=== PATIENT | female | born 1935 | race Caucasian/White ===

== ENCOUNTER 2023-08-31 10:44 | Emergency (ER) | payer MEDICARE, BC, SELFPAY ==
[2023-08-31 10:47] VITALS: BP 166/105
--- NOTE | 2023-08-31 10:49 | ED.GENMED ---
History of Present Illness
General
Chief Complaint: Heart Rate Problem
Source: records and ambulance crew
Time Seen by Provider: 08/31/23 10:45
History of Present Illness
History of Present Illness:
88-year-old female with past medical history of dementia and atrial fibrillation presenting to the emergency department from [facility] after staff found her to be in atrial fibrillation with rapid ventricular rate this morning
upon awakening. Patient herself has no concerns at this time. She is unable to provide any history secondary to her already known dementia. She is denying any chest pain, shortness of breath or any other concerns at present time. Unclear if
patient is on any current anticoagulants.
Past History
Past History
ED Past Medical History: Arrthythmia and Other (Dementia)
Social History
Tobacco: Non-smoker
Alcohol: None
Drug: None
Living: [facility]
Review of Systems
Review of Systems
All Other Systems: ROS reviewed and negative except as documented in HPI and ROS
Phy Exam
Physical Exam
Physical Exam:
GENERAL: Alert , in no apparent distress
EYE: Clear conjunctiva
NECK: Supple
ENT: o/p clr, mmm.
CARDIAC: Irregularly irregular, tachycardic
LUNGS: Clear breath sounds bilaterally, no acute respiratory distress,
ABDOMEN: Soft, without focal tenderness, no r/g, no cvat
NEUROLOGICAL: Alert and oriented to person but not place or time
SKIN: Warm and dry, skin intact.
MUSCULOSKELETAL: No edema, well perfused.
PSYCH: Normal and appropriate interaction.
Scores
Heart Failure Risk
Heart Failure Risk Score: Not Applicable
Heart Score for Chest Pain Patients
STEMI patient?: Not applicable
Withdrawal Assessment of Alcohol
Withdrawal Assessment Completed?: Not applicable
Course
Orders/Labs/Results
Orders:
Orders
08/31/23 10:49
Electrocardiogram (*1) Urgent
Reason for Study: Atrial Fibrillation
EKG- Treatment ONCE
08/31/23 10:52
Electrocardiogram (*1) Urgent
Reason for Study: Atrial Fibrillation
08/31/23 10:55
Basic Metabolic Panel Urgent
Complete Blood Count/With Diff Urgent
TSH Urgent
08/31/23 10:57
PTT Urgent
Prothrombin Time Urgent
08/31/23 11:24
EKG [Electrocardiogram (*1)] Urgent
Reason for Study: Other
Other Reason for Exam: rhythm change
08/31/23 11:25
EKG- Treatment ONCE
08/31/23 11:29
Diltiazem Sustained Release [Cardizem Sr] 60 mg PO NOW STA
Abnormal Lab Results
08/31/23 08/31/23
10:55 10:57
RBC 3.71 L 10^6/uL
(4.20-5.40)
MCV 101.3 H fL
(81.0-99.0)
MCH 32.3 H pg
(27.0-31.0)
MCHC 31.9 L g/dL
(33.0-37.0)
RDW 14.8 H %
(11.5-14.5)
Absolute Monos (auto) 0.7 H 10^3/uL
(0.1-0.6)
PT 16.6 H Sec
(11.4-14.6)
Sodium 134 L mmol/L
(135-145)
Creatinine 0.5 L mg/dL
(0.6-1.0)
Glucose 122 H mg/dl
(70-99)
08/31/23 10:55
08/31/23 10:55
Vital Signs
Initial and Last Documented VS:
Initial Vital Signs
Temp Pulse Resp BP Pulse Ox
98.6 F 140 18 166/105 96
08/31/23 10:47 08/31/23 10:47 08/31/23 10:47 08/31/23 10:47 08/31/23 10:47
Last Documented Vital Signs
Temp Pulse Resp BP Pulse Ox
98.6 F 91 9 128/75 97
08/31/23 10:47 08/31/23 13:00 08/31/23 13:00 08/31/23 13:00 08/31/23 13:00
MDM/Problems Addressed
Differential Diagnosis Includes:
Cardiac dysrhythmia, valvular dysfunction, electrolyte disturbance, less concern for infectious etiology
MDM/Problems Addressed:
88-year-old female presenting emergency department for evaluation of atrial fibrillation with rapid ventricular rate. She has a known history of A-fib but is not clear as to if patient is anticoagulated. Will attempt to contact patient's nursing
home to find out what medication she is on. Will likely need rate control. Labs and EKG ordered. Reassessment following
Chronic conditions affecting care: Arrhythmia and Other (Dementia)
Acute Exacerbation and/or Progression of Chronic Illness: Arrhythmia
*Pulse Oximetry
Patient hypoxic: no
*Gas Controller Interpretation
Rate: tachycardiac
Rhythm: a-fib
*Critical Care Note
Total Time (30-74mins, 75-104mins- exclusive of procedures): Not Applicable
Comment
Comment:
11:06 AM: Spoke to patient's son via telephone, Jose Guadalupe, and notified him of patient's presentation to the emergency department as well as her being found in atrial fibrillation with RVR. Notes that this is a relatively new diagnosis
since June of this year. Takes Cardizem and Coumadin. States medical delivery driver told them that if she continues to have breakthrough A-fib episodes may need to increase the p.o. Cardizem. He feels comfortable proceeding with cardioversion as long as
patient's INR is therapeutic. Will contact son back prior to performing cardioversion and once labs are completed.
Patient Management
Discussion with other providers: senior care staff
Escalation/DeEscalation of care consider admission/obs:
While awaiting patient's lab results she was found to be back into a normal sinus rhythm. Repeat EKG confirms this. I called and spoke with patient's nurse at her facility who states patient did get her 120 mg Cardizem p.o. this morning. Will
treat with an additional 60 mg p.o. and increase patient's daily Cardizem dose to 180 mg p.o. daily. Active patient's son back and notified him of this and that we would be discharging patient back to her living facility and he is in agreement with
this plan. They will follow-up with her cardiology team
ED Attending Note
-
Portions of this chart may have been created with voice recognition software.� Occasional wrong word or��sound alike� substitutions may have occurred due to the inherent limitations of voice recognition software.
Discharge Plan
Departure
Patient Disposition: [facility]/SNF
Date of Disposition: 08/31/23
Time of Disposition: 11:35
Discharge Problem:
Paroxysmal atrial fibrillation
Instructions: Atrial Fibrillation (DC)
Prescriptions:
New
diltiazem HCl [Cardizem LA] 180 mg tablet extended release 24 hr
180 mg PO DAILY Qty: 30 0RF
Referrals:
Sherry Mars CRNP [Family Provider] -
Interventions
Interventions:
*Risk Screen - Suicide Last Done: 08/31/23 10:47
*General Assessment Last Done: 08/31/23 10:47
*Neglect/Abuse Screening Last Done: 08/31/23 10:47
ED- Fall Risk Assessment Last Done: 08/31/23 11:04
*Nursing Disposition Last Done: 08/31/23 13:14
ED- Cardiac Assessment Last Done: 08/31/23 11:04
ED- Pulmonary Assessment Last Done: 08/31/23 11:04
Discharge Date and Time
Discharge Date/Time: 08/31/23 13:15
Print Language: [place]
[2023-08-31 11:00] VITALS: BP 121/86
[2023-08-31 11:12] LABS: % Basophils 0.5 % (0-2); % Eosinophils 2.6 % (0-6); % Immature Granulocytes 0.4 % (0-0.5); % Lymphocytes 24.3 % (20.5-51.1); % Monocytes 7.1 % (1.7-9.3); % Neutrophils 65.1 % (42.2-75.2); Absolute Basophils 0.1 10^3/uL (0-0.2); Absolute Eosinophils 0.3 10^3/uL (0-0.7); Absolute Lymphocytes 2.4 10^3/uL (1.2-3.4); Absolute Monocytes 0.7 10^3/uL (0.1-0.6); Absolute Neutrophils 6.4 10^3/uL (1.4-6.5); Hematocrit 37.6 % (37.0-47.0); Mean Corp Hgb Conc. 31.9 g/dL (33.0-37.0); Mean Corpuscular Hgb 32.3 pg (27.0-31.0); Mean Corpuscular Volume 101.3 fL (81.0-99.0); Mean Platelet Volume 9.8 fL (7.4-10.4); Nucleated Red Blood Cells % 0 %; Platelet Count 222 10^3/uL (130-400); Red Blood Cell Count 3.71 10^6/uL (4.20-5.40); Red Cell Dist. Width 14.8 % (11.5-14.5); White Blood Cell Count 9.9 10^3/uL (4.8-10.8)
[2023-08-31 11:23] LABS: Blood Urea Nitrogen 14 mg/dl (7-17); Calcium 9.5 mg/dl (8.4-10.2); Carbon Dioxide 29 mmol/L (22-30); Chloride 98 mmol/L (98-107); Estimated Creatinine Clearance 44 ml/min; Glucose 122 mg/dl (70-99); Potassium 3.9 mmol/L (3.5-5.1); Sodium 134 mmol/L (135-145); eGFR > 60.00
[2023-08-31 11:26] LABS: INR 1.36; PT 16.6 Sec (11.4-14.6)
[2023-08-31 11:27] LABS: APTT 32.2 Sec (23.4-35.0)
[2023-08-31 11:54] LABS: TSH 3.33 uIU/ml (0.47-4.68)
[2023-08-31 12:00] VITALS: BP 114/63
[2023-08-31] MEDS: CARDIZEM SR 60 MG PO (12:30)
[2023-08-31 13:00] VITALS: BP 128/75
== END 2023-08-31 13:15 ==
LOC: EMR 10:44
PROVIDERS: Physician Assistant Medical; EMERGENCY PHYSICIAN Emergency Medicine; FAMILY PHYSICIAN Nurse Practitioner Adult Health
DX: I48.0 Paroxysmal atrial fibrillation (principal); F03.90 Unspecified dementia, unspecified severity, without behavioral disturbance, psychotic disturbance, mood disturbance, and anxiety
CPT/HCPCS: 99284; 80048; 84443; 85025; 85610; 85730; 93005